=== PATIENT | female | born 1955 | race Caucasian/White ===

== ENCOUNTER 2016-11-29 05:49 | Day surgery (SDC) | payer BC ==
[~2016-11-29 05:49] MED LIST: Sodium Chloride 0.9% 10 ML Syringe FLUSH PRN
[2016-11-29] MEDS ORDERED: fentaNYL 50 MCG/HR Transdermal Patch TRDERM ONE (05:50)
[2016-11-29] MEDS ORDERED: Midazolam 1 MG/ML 2 ML SDV IV ONE ×7 (05:50→07:21)
[2016-11-29] MEDS ORDERED: Dextrose 5%-0.45% NaCl 1,000 ML IV SCH (06:00)
[2016-11-29] MEDS ORDERED: fentaNYL 100 MCG/2 ML SDV ONE (06:16)
[2016-11-29] MEDS ORDERED: Midazolam 1 MG/ML 2 ML SDV ONE (06:16)
[2016-11-29] MEDS ORDERED: fentaNYL 100 MCG/2 ML SDV IV ONE ×3 (07:13→07:22)
--- NOTE | 2016-11-29 07:54 | OR ---
DATE: 11/29/2016 PROCEDURE: Total colonoscopy. INSTRUMENT USED: CF-H180 AL Olympus video colonoscope. PREMEDICATIONS: Fentanyl 125 mcg intravenous, Versed 4 mg intravenous. Nasal O2 cannula. The procedure was done under pulse oximetry, BP recording, and ivf embryologist. INDICATIONS: The patient with high-risk family history for colon cancer. Colonoscopic examination is done for detection of any polypoid lesions and removal, endoscopic hemostasis therapy if needed. DESCRIPTION OF PROCEDURE: Initial rectal exam was unremarkable. Rigid anoscopy was normal. The colonoscope was passed with ease up to the ileocecal area. Photographs were taken of the normal-appearing cecum identified by landmarks of appendiceal orifice and double-bulged ileocecal folds. No bleeding was noted from any of the visualized areas at the commencement of the examination. No stricture. No vascular ectasia. No large isolated ulcerations seen. No evidence of diffuse inflammatory bowel disease in the form of friability, contact bleeding, or ulcerations. No polyp or tumor mass identified. Probing the proximal sides of folds and flexures using adequate distention and clearing up the stool material, withdrawal of the scope was made. Cecum to rectum time over 6 minutes. No bleeding was noted from any of the visualized areas at the completion of the examination. IMPRESSION: Normal study. The patient tolerated the procedure well. [facility] /[id number]
[2016-11-29 09:13] VITALS: BP 153/64
== END 2016-11-29 09:25 | disposition home or self-care (01) ==
LOC: DL.ENDO 05:49
PROVIDERS: ATTEND Internal Medicine Gastroenterology
DX: Z12.11 Encounter for screening for malignant neoplasm of colon (principal); I10 Essential (primary) hypertension; E78.00 Pure hypercholesterolemia, unspecified; Z80.0 Family history of malignant neoplasm of digestive organs; Z88.0 Allergy status to penicillin; Z90.710 Acquired absence of both cervix and uterus; Z98.890 Other specified postprocedural states; Z98.51 Tubal ligation status
CPT/HCPCS: 45378; A9270; J2250; J7042; J3010

== ENCOUNTER 2021-12-09 07:22 | Day surgery (SDC) | payer BC, MEDICARE ==
[~2021-12-09 07:22] MED LIST changes: +Midazolam 1 MG/ML 2 ML SDV ONE; -Sodium Chloride 0.9% 10 ML Syringe FLUSH PRN; +fentaNYL 100 MCG/2 ML SDV ONE
[2021-12-09] MEDS ORDERED: Midazolam 1 MG/ML 2 ML SDV IV ONE (07:23)
[2021-12-09] MEDS ORDERED: fentaNYL 100 MCG/2 ML SDV IV ONE (07:23)
[2021-12-09] MEDS: Dextrose 5%-0.45% NaCl 1,000 ML IV SCH (07:51)
[2021-12-09] MEDS: fentaNYL 100 MCG/2 ML SDV IV ONE ×3 (08:54→09:04)
[2021-12-09] MEDS: Midazolam 1 MG/ML 2 ML SDV IV ONE ×5 (08:55→09:03)
[2021-12-09 10:46] VITALS: BP 119/48; PULSE 64
== END 2021-12-09 10:33 | disposition home or self-care (01) ==
LOC: DL.ENDO 07:22
PROVIDERS: ATTEND Internal Medicine Gastroenterology
DX: Z12.11 Encounter for screening for malignant neoplasm of colon (principal); K57.30 Diverticulosis of large intestine without perforation or abscess without bleeding
CPT/HCPCS: J2250; J3010; J7042